=== PATIENT | male | born 1945 | race Caucasian/White ===

== ENCOUNTER 2017-03-09 15:42 | Emergency (ER) | payer OTHER ==
[~2017-03-09 15:42] MED LIST: ASPI81 PO; EZET10 PO; FURO20 PO; GLUC1000 PO; IBUP400T20 PO; LISI-360 PO; METH2.5 PO; METH4PAK PO; METO25 PO; NITR.4 SL; POTA-243 PO; ROSU40 PO
[2017-03-09 15:47] VITALS: BP 145/79; PULSE 121; RESP 18; TEMP 97.8; O2SAT 92
--- NOTE | 2017-03-09 16:17 | PD ---
HPI Chief Complaint: Respiratory Symptoms Time Seen by Provider: 16:07 Travel History International Travel<30 days: No Contact w/Intl Traveler<30days: No Traveled to known affect area: No History of Present Illness HPI 71-year-old male with PMH of DM, CAD status post CABG 4 presents to ED for evaluation of 4 day history of nonproductive cough. The patient endorses chills, has not measured a fever at home. He endorses sinus congestion and clear rhinorrhea. He denies dizziness, ear pain, headaches, chest pain, palpitations, shortness of breath, abdominal pain, nausea, vomiting, dysuria. Endorses receiving this years flu vaccine. Patient states that he went to [facility] just before arrival. He tested negative for the flu there. He states that he was sent because of low O2 level. PFSH Past Medical History Hx Anticoagulant Therapy: Yes (ASA 81 mg daily) Arthritis: Yes (RHEUMATOID) Asthma: No Blood Disorders: No Heart Rhythm Problems: No Cancer: Yes (PROSTATE CA) Cardiac Catheterization: Yes Cardiovascular Problems: Yes (CAD; CABG; HTN) High Cholesterol: Yes Chemotherapy: No Chest Pain: Yes Congestive Heart Failure: No COPD: No Cerebrovascular Accident: No Diabetes: Yes Patient Takes Glucophage: Yes Diminished Hearing: No Endocrine: No Genitourinary: No Hepatitis: No Hiatal Hernia: No Hypertension: Yes Immune Disorder: No Inguinal Hernia: Yes Implanted Vascular Access Dvce: Yes Musculoskeletal: No Neurologic: No Psychiatric: No Reproductive: No Respiratory: No Myocardial Infarction: Yes (mi x2.) Radiation Therapy: Yes (HX OF) Sickle Cell Disease: No Sleep Apnea: No Thyroid Disease: No Past Surgical History Abdominal Surgery: No AICD: No Arteriovenous Shunt: No Body Medical Devices: 2 RODS IN BACK, PINS LEFT FOOT, Cardiac Surgery: Yes (CABG X4, STENTS X2) Cholecystectomy: Yes Ear Surgery: No Endocrine Surgery: No Eye Surgery: No Genitourinary Surgery: No Gynecologic Surgery: No Insulin Pump: No Joint Replacement: Yes (RIGHT TOT. HIP) Oral Surgery: No Pacemaker: No Thoracic Surgery: No Other Surgery: Yes (LEFT ANKLE, RIGHT HIP, RIGHT ELBOW ,CABG X 4) Social History Alcohol Use: No Tobacco Use: No (QUIT 1994) Substance Use: No Allergies-Medications (Allergen,Severity, Reaction): Coded Allergies: penicillin G (Unverified Allergy, Severe, Rash, 03/09/17) atorvastatin (Unverified Allergy, Intermediate, BEHAVIOR CHANGES, 03/09/17 ) Reported Meds & Prescriptions Reported Meds & Active Scripts Active Levaquin (Levofloxacin) 750 Mg Tablet 750 Mg PO DAILY 7 Days Reported Glipizide 10 Mg Tab 10 Mg PO DAILYAC Take 30 minutes before a meal Rosuvastatin (Rosuvastatin Calcium) 20 Mg Tab 20 Mg PO DAILY Furosemide 40 Mg Tab 40 Mg PO DAILYAC Metoprolol Tartrate 50 Mg Tab 25 Mg PO BID Klor-Con 10 (Potassium Chloride) 10 Meq Tab 20 Meq PO DAILY Zetia (Ezetimibe) 10 Mg Tab 10 Mg PO DAILY Metformin (Metformin HCl) 1,000 Mg Tab 1,000 Mg PO BID Methotrexate 2.5 Mg Tab 12.5 Mg PO WEEKLY Januvia (Sitagliptin Phosphate) 50 Mg Tab 50 Mg PO DAILY Enbrel Sureclick PF Inj (Etanercept) 50 Mg/Ml Syr 1 Kit IM WEEKLY Review of Systems Except as stated in HPI: all other systems reviewed are Neg Physical Exam Narrative GENERAL: Well-nourished, well-developed white male in no acute distress. SKIN: Warm and dry. HEAD: Normocephalic. Atraumatic. EYES: No scleral icterus. No injection or drainage. PERRLA. EOMI. ENT: Pearly avila tympanic membranes bilaterally. Nasal mucosa is moist. Oropharynx without erythema, edema or exudate. NECK: Supple, trachea midline. No JVD or lymphadenopathy. CARDIOVASCULAR: Regular rate and rhythm without murmurs, gallops, or rubs. RESPIRATORY: Breath sounds coarse and equal bilaterally. No wheezing. No accessory muscle use. GASTROINTESTINAL: Abdomen soft, non-tender, nondistended. + Bowel sounds MUSCULOSKELETAL: No cyanosis, or edema. Noted to ambulate with a normal gait. BACK: Nontender without obvious deformity. No CVA tenderness. Data Data Last Documented VS Vital Signs Date Time Temp Pulse Resp B/P (MAP) Pulse Ox O2 Delivery O2 Flow Rate FiO2 03/09/17 21:49 104 20 114/79 (91) 96 03/09/17 20:00 Nasal Cannula 2.00 03/09/17 15:47 97.8 Orders Orders Complete Blood Count With Diff (03/09/17 15:51) B-Type Natriuretic Peptide (03/09/17 15:51) Act Partial Throm Time (Ptt) (03/09/17 15:51) Prothrombin Time / Inr (Pt) (03/09/17 15:51) Electrocardiogram (03/09/17 15:51) Chest, Pa & Lat (03/09/17 15:51) Troponin I (03/09/17 16:17) Sepsis Workup Initiated (03/09/17 ) Lactic Acid Sepsis Protocol (03/09/17 16:19) Blood Culture (03/09/17 16:19) Ecg Monitoring (03/09/17 16:19) Iv Access Insert/Monitor (03/09/17 16:19) Oximetry (03/09/17 16:19) Oxygen Administration (03/09/17 16:19) Acetaminophen (Tylenol) (03/09/17 16:30) Basic Metabolic Panel (Bmp) (03/09/17 16:31) Sodium Chlorid 0.9% 500 Ml Inj (Ns 500 M (03/09/17 18:00) Ct Pulmonary Angiogram (03/09/17 18:01) Albuterol-Ipratropium Neb (Duoneb Neb) (03/09/17 18:15) Iohexol 350 Inj (Omnipaque 350 Inj) (03/09/17 18:39) Sodium Chlorid 0.9% 500 Ml Inj (Ns 500 M (03/09/17 19:45) Levofloxacin 750 Mg Premix Inj (Levaquin (03/09/17 19:45) Ed Discharge Order (03/09/17 19:44) Labs Laboratory Tests Test 03/09/17 16:31 03/09/17 16:43 03/09/17 19:52 Blood Urea Nitrogen 18 MG/DL Creatinine 1.14 MG/DL Random Glucose 190 MG/DL Calcium Level 9.0 MG/DL Sodium Level 138 MEQ/L Potassium Level 4.0 MEQ/L Chloride Level 100 MEQ/L Carbon Dioxide Level 31.0 MEQ/L Anion Gap 7 MEQ/L Estimat Glomerular Filtration Rate 63 ML/MIN Troponin I LESS THAN 0.02 NG/ML White Blood Count 6.7 TH/MM3 Red Blood Count 4.59 MIL/MM3 Hemoglobin 13.6 GM/DL Hematocrit 40.4 % Mean Corpuscular Volume 87.8 FL Mean Corpuscular Hemoglobin 29.6 PG Mean Corpuscular Hemoglobin Concent 33.7 % Red Cell Distribution Width 14.2 % Platelet Count 207 TH/MM3 Mean Platelet Volume 7.8 FL Neutrophils (%) (Auto) 78.0 % Lymphocytes (%) (Auto) 8.7 % Monocytes (%) (Auto) 10.2 % Eosinophils (%) (Auto) 2.3 % Basophils (%) (Auto) 0.8 % Neutrophils # (Auto) 5.2 TH/MM3 Lymphocytes # (Auto) 0.6 TH/MM3 Monocytes # (Auto) 0.7 TH/MM3 Eosinophils # (Auto) 0.2 TH/MM3 Basophils # (Auto) 0.1 TH/MM3 CBC Comment DIFF FINAL Differential Comment Prothrombin Time 10.8 SEC Prothromb Time International Ratio 1.1 RATIO Activated Partial Thromboplast Time 24.4 SEC Lactic Acid Level 2.1 mmol/L 1.4 mmol/L B-Type Natriuretic Peptide 20 PG/ML MDM Medical Decision Making Medical Screen Exam Complete: Yes Emergency Medical Condition: Yes Differential Diagnosis Viral syndrome versus bronchitis versus pneumonia versus other Narrative Course 71-year-old male with PMH of DM, CAD status post CABG 4 presents to ED for evaluation of 4 day history of nonproductive cough. The patient endorses chills, has not measured a fever at home. He endorses sinus congestion and clear rhinorrhea. Endorses receiving this years flu vaccine. He tested negative for the flu at [facility]. He states that he was sent because of low O2 level. Vitals reviewed. Patient is tachycardic and O2 sats 92% on room air on presentation. Physical exam reveals an ill-appearing white male in no acute distress. ENT exam is unremarkable. He does have coarse breath sounds bilaterally but no wheezing. Patient was placed on 2 L O2 nasal cannula. Pneumonia workup was initiated. Patient's signed out to Dr. Upton. Please see her note for disposition. Scripts Levofloxacin (Levaquin) 750 Mg Tablet 750 MG PO DAILY for Infection for 7 Days, #7 TAB 0 Refills Prov: Janae Upton MD 03/09/17 Esther Jones Mar 09, 2017 16:17
[2017-03-09 16:25] VITALS: RESP 18; O2SAT 95
[2017-03-09] MEDS ORDERED: ACETAMINOPHEN 500 MG CPLT PO ONE (16:30)
--- NOTE | 2017-03-09 16:38 | PD ---
Physical Exam Narrative I, Dr. Upton, have reviewed the advance practice practitioner's documentation and am in agreement, met with the patient face to face, made the diagnosis, and the medical decision making was done by me. *My assessment and Findings: Patient is a 71 year old male who comes in complaining of cough, congestion, SOB. He says he caught a cold from his . Exam shows some coarse breath sounds, tachycardia. Data Data Last Documented VS Vital Signs Date Time Temp Pulse Resp B/P (MAP) Pulse Ox O2 Delivery O2 Flow Rate FiO2 03/09/17 21:49 104 20 114/79 (91) 96 03/09/17 20:00 Nasal Cannula 2.00 03/09/17 15:47 97.8 Orders Orders Complete Blood Count With Diff (03/09/17 15:51) B-Type Natriuretic Peptide (03/09/17 15:51) Act Partial Throm Time (Ptt) (03/09/17 15:51) Prothrombin Time / Inr (Pt) (03/09/17 15:51) Electrocardiogram (03/09/17 15:51) Chest, Pa & Lat (03/09/17 15:51) Troponin I (03/09/17 16:17) Sepsis Workup Initiated (03/09/17 ) Lactic Acid Sepsis Protocol (03/09/17 16:19) Blood Culture (03/09/17 16:19) Ecg Monitoring (03/09/17 16:19) Iv Access Insert/Monitor (03/09/17 16:19) Oximetry (03/09/17 16:19) Oxygen Administration (03/09/17 16:19) Acetaminophen (Tylenol) (03/09/17 16:30) Basic Metabolic Panel (Bmp) (03/09/17 16:31) Sodium Chlorid 0.9% 500 Ml Inj (Ns 500 M (03/09/17 18:00) Ct Pulmonary Angiogram (03/09/17 18:01) Albuterol-Ipratropium Neb (Duoneb Neb) (03/09/17 18:15) Iohexol 350 Inj (Omnipaque 350 Inj) (03/09/17 18:39) Sodium Chlorid 0.9% 500 Ml Inj (Ns 500 M (03/09/17 19:45) Levofloxacin 750 Mg Premix Inj (Levaquin (03/09/17 19:45) Ed Discharge Order (03/09/17 19:44) Labs Laboratory Tests Test 03/09/17 16:31 03/09/17 16:43 03/09/17 19:52 Blood Urea Nitrogen 18 MG/DL Creatinine 1.14 MG/DL Random Glucose 190 MG/DL Calcium Level 9.0 MG/DL Sodium Level 138 MEQ/L Potassium Level 4.0 MEQ/L Chloride Level 100 MEQ/L Carbon Dioxide Level 31.0 MEQ/L Anion Gap 7 MEQ/L Estimat Glomerular Filtration Rate 63 ML/MIN Troponin I LESS THAN 0.02 NG/ML White Blood Count 6.7 TH/MM3 Red Blood Count 4.59 MIL/MM3 Hemoglobin 13.6 GM/DL Hematocrit 40.4 % Mean Corpuscular Volume 87.8 FL Mean Corpuscular Hemoglobin 29.6 PG Mean Corpuscular Hemoglobin Concent 33.7 % Red Cell Distribution Width 14.2 % Platelet Count 207 TH/MM3 Mean Platelet Volume 7.8 FL Neutrophils (%) (Auto) 78.0 % Lymphocytes (%) (Auto) 8.7 % Monocytes (%) (Auto) 10.2 % Eosinophils (%) (Auto) 2.3 % Basophils (%) (Auto) 0.8 % Neutrophils # (Auto) 5.2 TH/MM3 Lymphocytes # (Auto) 0.6 TH/MM3 Monocytes # (Auto) 0.7 TH/MM3 Eosinophils # (Auto) 0.2 TH/MM3 Basophils # (Auto) 0.1 TH/MM3 CBC Comment DIFF FINAL Differential Comment Prothrombin Time 10.8 SEC Prothromb Time International Ratio 1.1 RATIO Activated Partial Thromboplast Time 24.4 SEC Lactic Acid Level 2.1 mmol/L 1.4 mmol/L B-Type Natriuretic Peptide 20 PG/ML [facility] Supervised Visit with ANG: Yes Narrative Course Labs show no acute abnormalities. Flu swab is negative. CXR shows no acute abnormalities. CTA shows no acute abnormalities, no evidence of PE. Last Impressions CT Angiography 03/09/171800 Signed Impressions: Service Date/Time: Thursday, March 09, 2017 18:19 - CONCLUSION: 1. No pulmonary embolus. 2. Mild bibasilar atelectasis. 3. Tiny right pleural effusion, smaller than on previous studies. 4. Asbestos related pleural disease again noted. 5. Stable appearing mesenteric mass along the greater curvature of the stomach, probably benign. Nigel Soto MD Chest X-Ray 03/09/17 1551 Signed Impressions: Service Date/Time: Thursday, March 09, 2017 16:54 - CONCLUSION: 1. Stable bilateral pleural plaques. Stable postsurgical changes over the heart. 2. Interval posterior fixation of the thoracolumbar spine as above. 3. Hypoinflation with bibasilar atelectatic changes. No large confluent infiltrate. Hoang Kennedy MD Patient states he is feeling well. I spoke with him regarding my concern over his increased heart rate. He says he is comfortable going home and will return if he is not feeling well. Discharged with a prescription for Levaquin. Given first does in the ED as well as IVF. Advised to follow up with his doctor. Advised to return for any worsening symptoms. Diagnosis Primary Impression: Bronchitis Patient Instructions: Acute Bronchitis (ED), General Instructions Additional Instruction: Take all of your antibiotic. Follow up with your doctors. Return at any time for any worsening symptoms. Scripts Levofloxacin (Levaquin) 750 Mg Tablet 750 MG PO DAILY for Infection for 7 Days, #7 TAB 0 Refills Prov: Janae Upton MD 03/09/17 Disposition: DISCHARGE HOME Condition: Stable Janae Upton MD Mar 09, 2017 16:38
--- NOTE | 2017-03-09 17:16 | RADRPT ---
EXAM DATE/TIME: 03/09/2017 16:54 [facility] COMPARISON: CHEST PA & LAT, July 24, 2015, 18:11. INDICATIONS : Short of breath. MEDICAL HISTORY : None. SURGICAL HISTORY : None. ENCOUNTER: Initial ACUITY: 1 day PAIN SCORE: 7/10 LOCATION: Bilateral chest FINDINGS: PA and lateral views of the chest demonstrate lungs to be hypoinflated with bibasilar atelectatic oleksandr nges. Scattered pleural plaques are unchanged. Postsurgical changes with intact median sternotomy wir es and surgical clips characteristic of prior CABG. Interval placement of bilateral transpedicular fi xation of the visualized portions of the midthoracic and upper lumbar spine. Heart size is normal acc ounting for degree of inspiration. CONCLUSION: 1. Stable bilateral pleural plaques. Stable postsurgical changes over the heart. 2. Interval posterior fixation of the thoracolumbar spine as above. 3. Hypoinflation with bibasilar atelectatic changes. No large confluent infiltrate. Hoang Kennedy MD on March 09, 2017 at 17:12 Board Certified Radiologist. This report was verified electronically.
[2017-03-09 17:23] LABS: AUTOMATED NEUTROPHIL # 5.2 TH/MM3 (1.8-7.7); BASOPHIL # 0.1 TH/MM3 (0-0.2); BASOPHIL % 0.8 % (0.0-2.0); EOSINOPHIL # 0.2 TH/MM3 (0-0.4); EOSINOPHIL % 2.3 % (0.0-4.0); HEMATOCRIT 40.4 % (39.0-51.0); HEMOGLOBIN 13.6 GM/DL (13.0-17.0); LYMPH % 8.7 % (9.0-44.0); LYMPHOCYTE # 0.6 TH/MM3 (1.0-4.8); MEAN CELL VOLUME 87.8 FL (80.0-100.0); MEAN CORPUSCULAR HEMOGLOBIN 29.6 PG (27.0-34.0); MEAN CORPUSCULAR HGB CONC 33.7 % (32.0-36.0); MEAN PLATELET VOLUME 7.8 FL (7.0-11.0); MONO % 10.2 % (0.0-8.0); MONOCYTE # 0.7 TH/MM3 (0-0.9); PLATELET COUNT 207 TH/MM3 (150-450); RED BLOOD COUNT 4.59 MIL/MM3 (4.50-5.90); RED CELL DISTRIBUTION WIDTH 14.2 % (11.6-17.2); WHITE BLOOD COUNT 6.7 TH/MM3 (4.0-11.0)
[2017-03-09 17:33] LABS: BLOOD UREA NITROGEN 18 MG/DL (7-18); CHLORIDE 100 MEQ/L (98-107); CREATININE 1.14 MG/DL (0.60-1.30); GLOMERULAR FILTRATION RATE 63 ML/MIN (>89); GLUCOSE,RANDOM 190 MG/DL (74-106); SODIUM (NA) 138 MEQ/L (136-145)
[2017-03-09 17:35] LABS: LACTIC ACID SEPSIS PROTOCOL 2.1 mmol/L (0.4-2.0)
[2017-03-09 17:37] LABS: TROPONIN I LESS THAN 0.02 NG/ML (0.02-0.05)
[2017-03-09 17:37] LABS: INTERNATIONAL NORMALIZED RATIO 1.1 RATIO; PROTHROMBIN TIME - PATIENT 10.8 SEC (9.8-11.6)
[2017-03-09] MEDS ORDERED: SODIUM CHLORID 0.9% 500 ML INJ 500 ML IV ONE ×2 (18:00→19:45)
[2017-03-09 18:01] VITALS: BP 132/80; PULSE 113; RESP 20; O2SAT 97
[2017-03-09] MEDS ORDERED: RESP: ALBUTEROL 2.5 MG/IPRATROPIUM 0.5 MG NEB (SCH) NEB ONE (18:15)
[2017-03-09] MEDS ORDERED: IOHEXOL 350 MG/ML 10 ML VIAL (for RAD DIAG) IVCONTRAST ONE (18:39)
--- NOTE | 2017-03-09 19:00 | RADRPT ---
EXAM DATE/TIME: 03/09/2017 18:19 [facility] COMPARISON: CT ABDOMEN & PELVIS W CONTRAST, August 17, 2015, 12:02. CT THORAX W CONTRAST, July 24, 2015, 19:06. INDICATIONS : Patient complains of cough, short of breath for four days. IV CONTRAST: 52 cc Omnipaque 350 (iohexol) IV RADIATION DOSE: 15.68 CTDIvol (mGy) MEDICAL HISTORY : Cardiovascular disease. Diabetes mellitus type 1. Carcinoma, prostate. SURGICAL HISTORY : Cholecystectomy. CABGT-spine surgery ENCOUNTER: Initial ACUITY: 4 - 6 days PAIN SCALE: 0/10 LOCATION: chest TECHNIQUE: Volumetric scanning of the chest was performed using a pulmonary embolism protocol MIP images were re constructed. Using automated exposure control and adjustment of the mA and/or kV according to patien t size, radiation dose was kept as low as reasonably achievable to obtain optimal diagnostic quality images. DICOM format image data is available electronically for review and comparison. Follow-up recommendations for detected pulmonary nodules are based at a minimum on nodule size and pa tient risk factors according to Fleischner Society Guidelines. FINDINGS: There is no pulmonary embolus. Mild bibasilar atelectasis noted. There is a tiny right pleural effusion, smaller than on previous st udies. Heart size within normal limits. Patient has had previous median sternotomy and coronary artery bypas s graft operation. Scattered calcified pleural plaquing again noted. Tortuous thoracic aorta with patchy atherosclerotic plaque. No aneurysm. Upper abdomen only partly included on the study. The extraluminal mass along the greater curvature of the stomach measuring approximately 2.5 cm in size again noted and not perceptibly changed, probably benign. CONCLUSION: 1. No pulmonary embolus. 2. Mild bibasilar atelectasis. 3. Tiny right pleural effusion, smaller than on previous studies. 4. Asbestos related pleural disease again noted. 5. Stable appearing mesenteric mass along the greater curvature of the stomach, probably benign. Nigel Soto MD on March 09, 2017 at 18:55 Board Certified Radiologist. This report was verified electronically.
[2017-03-09 19:05] VITALS: BP 132/80; PULSE 115; RESP 20; O2SAT 96
[2017-03-09] MEDS ORDERED: LEVA750T9 PO (19:43)
[2017-03-09] MEDS ORDERED: LEVOFLOXACIN 750 MG PREMIX INJ 150 ML IV ONE (19:45)
[2017-03-09 20:00] VITALS: BP 133/77; PULSE 110; RESP 20; O2SAT 96
[2017-03-09 21:49] VITALS: BP 114/79
[2017-03-10] MEDS ORDERED: METH2.5T PO (00:36)
[2017-03-10] MEDS ORDERED: FURO40TA PO (00:36)
[2017-03-10] MEDS ORDERED: EZET10 PO (00:36)
[2017-03-10] MEDS ORDERED: METF1000 PO (00:36)
[2017-03-10] MEDS ORDERED: METO50TA PO (00:36)
[2017-03-10] MEDS ORDERED: ROSU1TAB8 PO (00:36)
[2017-03-10] MEDS ORDERED: GLIP10TA6 PO (00:36)
[2017-03-10] MEDS ORDERED: KLOR10TA PO (00:36)
[2017-03-10] MEDS ORDERED: ENBR50IN4 IM (00:36)
[2017-03-10] MEDS ORDERED: SITA50 PO (00:36)
--- NOTE | 2017-03-10 15:05 | EKG ---
Date Performed: 03/09/2017 Time Performed: 16:14:43 PTAGE: 71 years EKG: SINUS TACHYCARDIA INTRAVENTRICULAR CONDUCTION DELAY INFERIOR MYOCARDIAL INFARCTION ABNORMAL ECG PREVIOUS TRACING : 08/17/2015 11.05 DOCTOR: Patrick Decker Interpretating Date/Time 03/10/2017 15:04:35
== END 2017-03-09 21:56 | disposition home or self-care (01) ==
LOC: NEPC 15:42
DX: J40 Bronchitis, not specified as acute or chronic (principal); R00.0 Tachycardia, unspecified; E78.00 Pure hypercholesterolemia, unspecified; E11.9 Type 2 diabetes mellitus without complications; I10 Essential (primary) hypertension; I25.10 Atherosclerotic heart disease of native coronary artery without angina pectoris; I25.2 Old myocardial infarction; M06.9 Rheumatoid arthritis, unspecified; R06.02 Shortness of breath; Z79.82 Long term (current) use of aspirin; Z79.84 Long term (current) use of oral hypoglycemic drugs; Z87.891 Personal history of nicotine dependence; Z95.1 Presence of aortocoronary bypass graft
CPT/HCPCS: 71020; 71275; 80048; 83605; 83880; 84484; 85025; 85610; 85730; 87040; 93005; 94664; 96361; 96365; 96366; 99285; J1956; J7040; Q9967

== ENCOUNTER 2018-02-21 15:29 | Observation (INO) ==
--- NOTE | 2018-02-21 15:45 | ED ---
HPI General Chief Complaint: Chest Pain Stated Complaint: Stemi Time Seen by Provider: 02/21/18 15:37 Source: patient Mode of arrival: EMS Limitations: no limitations History of Present Illness HPI narrative: Primary CARE Dr. Nigel Dallas, Dr. Van will send radiologist According to patient he has multiple histories of multiple infarcts status post stents, CABG, hypertension and diabetes. Today the patient presented with substernal chest pressure nonradiating onset about 30 minutes prior to arrival while at rest. Once fire arrived they placed a 12-lead on and according to their interpretation it looks like a STEMI however they did not give any kind anatomical information and the patient was transferred/transported to the ER. Upon arriving the patient was pain-free vital signs were stable and he did not have any complaint at that time. Related Data Home Medications Medication Instructions Recorded Confirmed cyanocobalamin (vitamin B-12) 5,000 mcg SUBLINGUAL WEEKLY 02/21/18 02/21/18 [Vitamin B-12] empagliflozin [Jardiance] 10 mg PO DAILY 02/21/18 02/21/18 ezetimibe [Zetia] 10 mg PO DAILY 02/21/18 02/21/18 folic acid 0.4 mg PO DAILY 02/21/18 02/21/18 furosemide 40 mg PO DAILY 02/21/18 02/21/18 glipizide 10 mg PO DAILY 02/21/18 02/21/18 metformin 1,000 mg PO BID 02/21/18 02/21/18 methotrexate sodium 12.5 mg PO QWEEK 02/21/18 02/21/18 metoprolol tartrate 25 mg PO BID 02/21/18 02/21/18 potassium chloride [Klor-Con 10] 20 meq PO DAILY 02/21/18 02/21/18 rosuvastatin [Crestor] 20 mg PO DAILY 02/21/18 02/21/18 Allergies Allergy/AdvReac Type Severity Reaction Status Date / Time penicillin G Allergy Severe Rash Verified 02/21/18 15:41 atorvastatin Allergy Intermediate BEHAVIOR Verified 02/21/18 15:41 CHANGES Review of Systems ROS: all other systems reviewed are negative PMFSH History History Provided By: Patient Medical History Medical History Diabetes mellitus (Acute) HTN (hypertension) (Acute) Myocardial infarct (Acute) Surgical History Surgical History History of heart artery stent (Acute) History of heart bypass surgery (Acute) Social History Social History Substance History: No History of Abuse Smoking Status: Former smoker How Often Do You Have a Drink Containing Alcohol: Never Recent Travel in [facility] within the Last 8 Weeks: No Recent Out of Country Travel within the Last 8 Weeks: No Exam Narrative Exam Narrative: GENERAL: Obese male in no acute distress SKIN: Warm and dry. HEAD: Atraumatic. Normocephalic. EYES: Pupils equal and round. No scleral icterus. No injection or drainage. ENT: No nasal bleeding or discharge. Mucous membranes pink and moist. NECK: Trachea midline. No JVD. CARDIOVASCULAR: Regular rate and rhythm. no rubs or gallops RESPIRATORY: No accessory muscle use. Clear to auscultation. Breath sounds equal bilaterally. GASTROINTESTINAL: Abdomen soft, non-tender, nondistended. No rebound or guarding... Patient has caput medusa-like findings on abdomen, reducible umbilical hernia, MUSCULOSKELETAL: Extremities without clubbing, cyanosis, or edema. No obvious deformities. NEUROLOGICAL: Awake and alert. No obvious cranial nerve deficits. Motor grossly within normal limits. Five out of 5 muscle strength in the arms and legs. Normal speech. PSYCHIATRIC: Appropriate mood and affect; insight and judgment normal. Course Initial Documented Vital Signs Pulse Rate 85 02/21/18 15:31 Respiratory Rate 22 02/21/18 15:31 Blood Pressure 146/74 H 02/21/18 15:31 Pulse Oximetry 98 02/21/18 15:31 Last Documented Vital Signs Temperature 98.3 F 02/21/18 15:37 Pulse Rate 98 H 02/21/18 17:37 Respiratory Rate 18 02/21/18 17:37 Blood Pressure 134/86 02/21/18 17:37 Pulse Oximetry 96 02/21/18 17:37 Medical Decision Making MDM Narrative Medical decision making narrative: To repeat EKGs did not show any evidence of acute ST elevation, and only showed a right bundle branch block pattern, so the STEMI alert was aborted CBC shows no leukocytosis no anemia no abnormal platelet count and no left shift Coagulation profile is within normal limits Although the patient has no previous history of any allergies to IV contrast, the patient was noted to develop hives on his return from the CT suite where he received IV contrast for CT chest rule out PE study. Patient did not have any angioedema signs, no evidence of any stridor, no evidence of any wheezing, however he did have those early small hives noted. Patient was immediately provided with 25 mg IV Benadryl, 20 mg IV Pepcid, and 125 mg Solu-Medrol IV x1 Currently awaiting CT chest results Medical Screen Exam Complete: Yes Emergency Medical Condition: Yes Medical Records Medical records reviewed: Yes I reviewed the patient's medical records. Lab Data Result diagrams: 02/21/18 15:46 02/21/18 15:46 Lab Results 02/21/18 02/21/18 02/21/18 Range/Units 15:46 15:46 15:46 WBC 4.8 (4.0-11.0) th/mm3 RBC 4.39 L (4.50-5.90) mil/mm3 Hgb 13.7 (13.0-17.0) gm/dL Hct 40.4 (39.0-51.0) % MCV 92.0 (80.0-100.0) fL MCH 31.1 (27.0-34.0) pg MCHC 33.8 (32.0-36.0) % RDW 14.5 (11.6-17.2) % Plt Count 194 (150-450) th/mm3 MPV 7.2 (7.0-11.0) fL Neut % (Auto) 60.7 (16.0-70.0) % Lymph % (Auto) 20.9 (9.0-44.0) % Fajardo % (Auto) 12.3 H (0.0-8.0) % Eos % (Auto) 5.3 H (0.0-4.0) % Baso % (Auto) 0.8 (0.0-2.0) % Neut # (Auto) 2.9 (1.8-7.7) th/mm3 Lymph # (Auto) 1.0 (1.0-4.8) th/mm3 Fajardo # (Auto) 0.6 (0.0-0.9) th/mm3 Eos # (Auto) 0.3 (0.0-0.4) th/mm3 Baso # (Auto) 0.0 (0.0-0.2) th/mm3 WBC Differential . Differential Comment Auto diff final PT 10.5 (9.8-11.6) sec INR 1.0 Ratio APTT 26.4 (23.4-31.7) sec Sodium 140 (136-145) meq/L Potassium 3.8 (3.5-5.1) meq/L Chloride 102 (98-107) meq/L Carbon Dioxide 30.6 (21.0-32.0) meq/L Anion Gap 7 (5-15) meq/L BUN 19 H (7-18) mg/dL Creatinine 1.12 (0.60-1.30) mg/dL Estimated GFR 64 L (>89) mL/min Random Glucose 195 H (74-106) mg/dL Calcium 8.1 L (8.5-10.1) mg/dL Total Bilirubin 0.2 (0.2-1.0) mg/dL AST 23 (15-37) U/L ALT 30 (12-78) U/L Alkaline Phosphatase 57 (45-117) U/L Total Creatine Kinase 118 (39-308) U/L CK-MB (CK-2) Less than 1.0 (0.5-3.6) ng/mL Troponin I Less than 0.02 L (0.02-0.05) ng/mL B-Natriuretic Peptide (0-100) pg/mL Total Protein 7.8 (6.4-8.2) g/dL Albumin 3.3 L (3.4-5.0) g/dL Lipase 172 (73-393) U/L 02/21/18 Range/Units 15:46 WBC (4.0-11.0) th/mm3 RBC (4.50-5.90) mil/mm3 Hgb (13.0-17.0) gm/dL Hct (39.0-51.0) % MCV (80.0-100.0) fL MCH (27.0-34.0) pg MCHC (32.0-36.0) % RDW (11.6-17.2) % Plt Count (150-450) th/mm3 MPV (7.0-11.0) fL Neut % (Auto) (16.0-70.0) % Lymph % (Auto) (9.0-44.0) % Fajardo % (Auto) (0.0-8.0) % Eos % (Auto) (0.0-4.0) % Baso % (Auto) (0.0-2.0) % Neut # (Auto) (1.8-7.7) th/mm3 Lymph # (Auto) (1.0-4.8) th/mm3 Fajardo # (Auto) (0.0-0.9) th/mm3 Eos # (Auto) (0.0-0.4) th/mm3 Baso # (Auto) (0.0-0.2) th/mm3 WBC Differential Differential Comment PT (9.8-11.6) sec INR Ratio APTT (23.4-31.7) sec Sodium (136-145) meq/L Potassium (3.5-5.1) meq/L Chloride (98-107) meq/L Carbon Dioxide (21.0-32.0) meq/L Anion Gap (5-15) meq/L BUN (7-18) mg/dL Creatinine (0.60-1.30) mg/dL Estimated GFR (>89) mL/min Random Glucose (74-106) mg/dL Calcium (8.5-10.1) mg/dL Total Bilirubin (0.2-1.0) mg/dL AST (15-37) U/L ALT (12-78) U/L Alkaline Phosphatase (45-117) U/L Total Creatine Kinase (39-308) U/L CK-MB (CK-2) (0.5-3.6) ng/mL Troponin I (0.02-0.05) ng/mL B-Natriuretic Peptide 14 (0-100) pg/mL Total Protein (6.4-8.2) g/dL Albumin (3.4-5.0) g/dL Lipase (73-393) U/L Imaging Data Radiologist's impression: Chest X-Ray 02/21/18 15:38 CONCLUSION: 1. Apparent blunting of both costophrenic angles which could indicate small effusions. 2. The heart size remains mildly prominent with no perihilar edema. ECG Data EKG Prior to Arrival: Yes Attestation: I personally reviewed and interpreted this ECG as follows: Prior ECG tracings: available for review Interpretation: EMS prior EKG tracing shows right bundle branch block pattern, heart rate 83 bpm, prolonged QRS interval. EKG performed at bedside showed normal sinus rhythm, 82 bpm occasional PAC, and findings consistent with right bundle branch block, no evidence of any acute ST elevation MO pattern, no evidence of any positive sgarbossa's criteria. Discharge Plan Discharge Disposition Patient Disposition: ED Admit(ED Internal Use Only) Discharge Condition Condition: Stable Discharge Details Diagnosis: Chest pain, rule out acute myocardial infarction Physicians Team ED Provider: Clayton Caputo Primary Care Provider: Aleksander Dallas Rxs /Orders / Referrals /Forms Prescriptions: No Action furosemide 40 mg Tablet 40 mg PO DAILY RF: 0 glipizide 10 mg Tablet 10 mg PO DAILY RF: 0 potassium chloride [Klor-Con 10] 10 mEq Tablet Extended Release 20 meq PO DAILY RF: 0 folic acid 400 mcg Tablet 0.4 mg PO DAILY RF: 0 methotrexate sodium 2.5 mg Tablet 12.5 mg PO QWEEK RF: 0 metformin 1,000 mg Tablet 1,000 mg PO BID RF: 0 ezetimibe [Zetia] 10 mg Tablet 10 mg PO DAILY RF: 0 rosuvastatin [Crestor] 20 mg Tablet 20 mg PO DAILY RF: 0 metoprolol tartrate 25 mg Tablet 25 mg PO BID RF: 0 cyanocobalamin (vitamin B-12) [Vitamin B-12] 5,000 mcg Tablet, Sublingual 5,000 mcg SUBLINGUAL WEEKLY RF: 0 empagliflozin [Jardiance] 10 mg Tablet 10 mg PO DAILY RF: 0 Discharge Instructions Patient Printed Instructions: Chest Pain (ED) Status ED Status: With Doctor
--- NOTE | 2018-02-21 15:55 | XR ---
EXAM DATE: 02/21/2018 3:51 PM EST AGE/SEX: 72 years / Male INDICATIONS: Short of breath, stemi alert. CLINICAL DATA: This is the patient's initial encounter. Patient reports that signs and symptoms have been present for 1 day and indicates a pain score of 0/10. MEDICAL/SURGICAL HISTORY: Non-responsive. CABG. Fusion, thoracic. COMPARISON: [facility] – [place], CHEST PA & LAT, 03/09/2017. . FINDINGS: A single AP portable semierect view of the chest was obtained and again demonstrate the patient is st atus post median sternotomy. The heart size remains mildly prominent. There is blunting of both costo phrenic angles noted. No confluent infiltrates or perihilar edema are identified. There are postopera tive changes again noted in the spine with spinal fixation rods in place. CONCLUSION: 1. Apparent blunting of both costophrenic angles which could indicate small effusions. 2. The heart size remains mildly prominent with no perihilar edema. Electronically signed by: Grady Spain MD 02/21/2018 3:54 PM EST
[2018-02-21 16:03] LABS: Baso % (Auto) 0.8 % (0.0-2.0); Eos # (Auto) 0.3 th/mm3 (0.0-0.4); Eos % (Auto) 5.3 % (0.0-4.0); Hematocrit 40.4 % (39.0-51.0); Hemoglobin 13.7 gm/dL (13.0-17.0); Lymph % (Auto) 20.9 % (9.0-44.0); Mean Corpuscular HGB Conc 33.8 % (32.0-36.0); Mean Corpuscular Hemoglobin 31.1 pg (27.0-34.0); Mean Platelet Volume 7.2 fL (7.0-11.0); Mono # (Auto) 0.6 th/mm3 (0.0-0.9); Mono % (Auto) 12.3 % (0.0-8.0); Neut # (Auto) 2.9 th/mm3 (1.8-7.7); Neut % (Auto) 60.7 % (16.0-70.0); Platelet Count 194 th/mm3 (150-450); Red Blood Count 4.39 mil/mm3 (4.50-5.90); Red Cell Distribution Width 14.5 % (11.6-17.2); White Blood Count 4.8 th/mm3 (4.0-11.0)
[2018-02-21 16:13] LABS: Activated Partial Thrombo Time 26.4 sec (23.4-31.7); Prothrombin Time 10.5 sec (9.8-11.6)
[2018-02-21 16:32] LABS: Alkaline Phosphatase 57 U/L (45-117); Creatine Kinase 118 U/L (39-308); Total Protein 7.8 g/dL (6.4-8.2)
[2018-02-21 16:47] LABS: Alanine Aminotransferase 30 U/L (12-78); Albumin 3.3 g/dL (3.4-5.0); Anion Gap 7 meq/L (5-15); Aspartate Aminotransferase 23 U/L (15-37); Blood Urea Nitrogen 19 mg/dL (7-18); Calcium 8.1 mg/dL (8.5-10.1); Carbon Dioxide 30.6 meq/L (21.0-32.0); Chloride 102 meq/L (98-107); Glomerular Filtration Rate 64 mL/min (>89); Glucose,Random 195 mg/dL (74-106); Lipase 172 U/L (73-393); Potassium 3.8 meq/L (3.5-5.1); Sodium 140 meq/L (136-145)
[2018-02-21] MEDS ORDERED: Famotidine PF Inj 20 MG/2 ML Vial IV.PUSH ONE (18:56)
[2018-02-21] MEDS ORDERED: MethylPREDNISolone Sod Succinate Inj 125 MG/2 ML Vial IV.PUSH ONE (18:56)
--- NOTE | 2018-02-21 19:04 | CT ---
EXAM DATE: 02/21/2018 6:57 PM EST AGE/SEX: 72 years / Male INDICATIONS: Mid chest pain CLINICAL DATA: This is the patient's initial encounter. Patient reports that signs and symptoms have been present for 1 day and indicates a pain score of 7/10. MEDICAL/SURGICAL HISTORY: Diabetes. Hypertension. Cardiovascular disease. CABG. RADIATION DOSE: 10.63 CTDI (mGy) COMPARISON: [facility] – [place], [place] ABDOMEN & PELVIS W CONTRAST, 08/17/2015. . TECHNIQUE: Volumetric scanning was performed using a multi-row detector CT scanner during bolus infu thea of 55 ml Omnipaque 350 (iohexol) nonionic water-soluble contrast as a single exam dose. The natalie a was post processed with a variety of visualization algorithms including full volume maximum intensi ty projection and sliding thin slab reformation. Using automated exposure control and adjustment of the mA and/or kV according to patient size, radiation dose was kept as low as reasonably achievable t o obtain optimal diagnostic quality images. DICOM format image data is available electronically for review and comparison. FINDINGS: No filling defects seen to suggest pulmonary embolic disease. There is chronic pleural disease with p leural calcifications likely from asbestos exposure. Rounded atelectasis present at both lung bases w ith chronic small effusions. Mild asbestosis. Dense coronary calcifications. No acute findings in the upper abdomen. CONCLUSION: 1. Negative for pulmonary embolus. 2. Asbestos pleural disease and mild asbestosis. 3. Stable 2.7 cm soft tissue nodule along the greater curvature of the stomach compared with 2016. Electronically signed by: Praful Arthur MD 02/21/2018 7:03 PM EST
[2018-02-21] MEDS ORDERED: Morphine Inj 4 MG/ML Vial IV.PUSH PRN (19:07)
[2018-02-21] MEDS: Heparin - SQ 10,000 UNITS/ML Vial SQ SCH (19:45)
[2018-02-21 20:28] LABS: Amphetamine Screen,Urine Neg (Neg); Barbiturate Screen,Urine Neg (Neg); Cannabinoid Screen,Urine Neg (Neg); Cocaine Screen,Urine Neg (Neg)
[2018-02-21 20:35] LABS: Bilirubin,Urine Negative (Negative); Clarity,Urine Clear (Clear); Color,Urine Yellow (Yellw/Straw); Glucose,Urine (UA) 500 or Greater mg/dL (Negative); Leukocyte Esterase,Urine Negative (Negative); Mucus,Urine Few /lpf (Occasional); Nitrite,Urine Negative (Negative); Specific Gravity,Urine 1.027 (1.002-1.035); Squamous Epithelial Cell,Urine <1 /hpf (0-5)
[2018-02-21 20:42] LABS: Opiate Screen,Urine Neg (Neg)
[2018-02-21 20:49] VITALS: TEMP 97.6
[2018-02-21] MEDS ORDERED: Metoprolol Tartrate 25 MG Tablet PO ONE (22:00)
[2018-02-21] MEDS: Sod Chloride 0.9% Inj 1,000 ML IV.CONT SCH (22:31)
[2018-02-21 23:33] LABS: Creatine Kinase 100 U/L (39-308)
[2018-02-22] MEDS: Sod Chloride 0.9% Inj 1,000 ML IV.CONT SCH ×2 (04:45→06:56)
[2018-02-22] MEDS: Heparin - SQ 10,000 UNITS/ML Vial SQ SCH (06:54)
[2018-02-22 07:23] VITALS: RESP 20
[2018-02-22] MEDS ORDERED: Metoprolol Tartrate 25 MG Tablet PO SCH ×2 (09:00→10:00)
--- NOTE | 2018-02-22 09:01 | P.HPCA ---
History of Present Illness Primary Care Physician: Aleksander Dallas MD Chief Complaint: Chest pain History of Present Illness: This is a 72-year-old male with history of CAD with a CABG in 1994, stent 2012, diabetes, hyperlipidemia, hypertension that presents to ED to be evaluated for chest discomfort. Describes a discomfort that he did that he states was an electrical sensation in the center of his chest that began while he was sitting at home last evening. Lasted 30 seconds but recurred 3 or 4 times. He chronically is somewhat short of breath but states it was not worsened with his discomfort. Denies nausea or diaphoresis. States that this discomfort is not the same type of discomfort he has had when meeting bypass or stent. His discomforts and no situations were in his left arm. He follows Dr. Rehan John of cardiology and states he last saw him approximately in October. Cannot recall recent stress test in his office. Currently denies any discomforts. A CTA obtained in the emergency department was read by radiologist as no PE. 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 He states he had seen Dr. Godwin a pulmonology little while ago after seeing something on a chest x-ray. States that they were told things were looking okay but they would want to see him again in March. States he is never been told of a diagnosis of asbestosis and cannot recall ever being told he has COPD. He does have sleep apnea but cannot wear the mask secondary to claustrophobia. History of CAD with a bypass in 1994 as well as a stent in 2012. Diabetes, hyperlipidemia, hypertension, sleep apnea. There is family history of CAD. He quit smoking cigarettes 25 years ago. - Diagnosis (1) Chest pain (2) Asbestosis (3) History of coronary artery disease (4) History of heart artery stent (5) History of coronary artery bypass graft (6) Hypertension (7) Hyperlipidemia (8) Diabetes Review of Systems General: Patient denies fevers, chills, and recent travel. HEENT: Patient denies headache, sore throat, difficulty swallowing. Cardiovascular: Has the chest discomfort as mentioned above. Denies sensation of heart beating rapidly or irregularly. No syncope. Denies diaphoresis. Respiratory: He has been short of breath. Denies inspirational chest discomfort. Denies coughing wheezing or hemoptysis. GI: Patient denies nausea, vomiting, diarrhea, abdominal pain, bloody stools. Musculoskeletal: Patient denies joint pain or edema. Denies calf pain or edema. Neurovascular: Patient denies numbness, tingling, weakness in extremities. Denies headache. Endocrine: Denies polyuria and polydipsia. Hematologic: Denies easy bruising. Skin: Denies rash or itching. PMF - History History Provided By: Patient - Medical History Medical History: Medical History (Last Reviewed 02/21/18 @ 15:41 by Clayton Caputo) Diabetes mellitus HTN (hypertension) Myocardial infarct - Surgical History Surgical History: Surgical History (Last Reviewed 02/21/18 @ 15:41 by Clayton Caputo) History of heart artery stent History of heart bypass surgery - Tobacco History Second Hand Smoke Exposure: No Tobacco Use In Past 30 Days: No Smoking Status: Former smoker Tobacco Type: Cigarettes - Alcohol History How Often Do You Have a Drink Containing Alcohol: Never - Substance Use History Substance History: No History of Abuse - Travel History Recent Travel in the [place] Within the Last 8 Weeks: No Recent Travel Out of the Country Within the Last 8 Weeks: No - Immunization History Tetanus Immunization: Unsure Medications and Allergies Active Medications: Active Medications Albuterol (Duoneb Neb (Prn)) 1 ampul NEB Q4HR NEB PRN PRN Reason: SHORTNESS OF BREATH/WHEEZING Furosemide (Lasix) 40 mg PO DAILY [facility] Heparin Sodium (Porcine) (Heparin Inj) 5,000 units SQ Q12H [facility] Last Admin: 02/22/18 06:54 Dose: 5,000 units Sodium Chloride (Ns Inj) 1,000 mls @ 100 mls/hr IV.CONT .Q10H [facility] Last Admin: 02/22/18 06:56 Dose: 100 mls/hr Insulin Human Regular (Novolin R Correctional Sugar Inj) 0 units SQ ACHS [facility]; Protocol Metoprolol Tartrate (Lopressor) 25 mg PO BID [facility] Last Admin: 02/22/18 08:49 Dose: 25 mg Metoprolol Tartrate (Lopressor) 25 mg PO BID [facility] Morphine Sulfate (Morphine Inj) 2 mg IV.PUSH Q4H PRN PRN Reason: PAIN SCALE 8 TO 10 Nitroglycerin (Nitrostat Sl) 0.4 mg SL Q5M PRN PRN Reason: CHEST PAIN Non-Formulary Medication (Folic Acid [Folic Acid]) 0.4 mg PO DAILY [facility] Non-Formulary Medication (Rosuvastatin) 20 mg PO DAILY [facility] Ondansetron HCl (Zofran Inj) 4 mg IV.PUSH Q6H PRN PRN Reason: NAUSEA Potassium Chloride (Klor-Con 10) 20 meq PO DAILY [facility] Sodium Chloride (Ns Flush) 2 ml IV.FLUSH UNSCH PRN PRN Reason: FLUSH AFTER USING IV ACCESS Sodium Chloride (Ns Flush) 2 ml IV.FLUSH BID [facility] Last Admin: 02/22/18 08:49 Dose: Not Given Sodium Chloride (Ns Flush) 2 ml IV.FLUSH PRN PRN PRN Reason: FLUSH AFTER USING IV ACCESS Allergies Allergy/AdvReac Type Severity Reaction Status Date / Time penicillin G Allergy Severe Rash Verified 02/21/18 15:41 atorvastatin Allergy Intermediate BEHAVIOR Verified 02/21/18 15:41 CHANGES Home Medications Medication Instructions Recorded Confirmed Type cyanocobalamin (vitamin B-12) 5,000 mcg SUBLINGUAL WEEKLY 02/21/18 02/21/18 History [Vitamin B-12] empagliflozin [Jardiance] 10 mg PO DAILY 02/21/18 02/21/18 History ezetimibe [Zetia] 10 mg PO DAILY 02/21/18 02/21/18 History folic acid 0.4 mg PO DAILY 02/21/18 02/21/18 History furosemide 40 mg PO DAILY 02/21/18 02/21/18 History glipizide 10 mg PO DAILY 02/21/18 02/21/18 History metformin 1,000 mg PO BID 02/21/18 02/21/18 History methotrexate sodium 12.5 mg PO QWEEK 02/21/18 02/21/18 History metoprolol tartrate 25 mg PO BID 02/21/18 02/21/18 History potassium chloride [Klor-Con 10] 20 meq PO DAILY 02/21/18 02/21/18 History rosuvastatin [Crestor] 20 mg PO DAILY 02/21/18 02/21/18 History Exam Vital signs: Vital Signs 02/21/18 15:31 02/21/18 15:37 02/21/18 15:40 Temperature 98.3 F Pulse Rate 85 Respiratory Rate 22 Blood Pressure 146/74 H Pulse Oximetry 98 96 02/21/18 15:41 02/21/18 17:37 02/21/18 19:15 Temperature Pulse Rate 84 98 H 80 Respiratory Rate 18 20 Blood Pressure 134/86 148/93 H Pulse Oximetry 96 95 02/21/18 19:16 02/21/18 20:00 02/21/18 23:00 Temperature 97.6 F Pulse Rate 104 H Respiratory Rate 20 Blood Pressure 127/81 Pulse Oximetry 96 93 L 98 02/21/18 23:37 02/22/18 04:00 02/22/18 07:21 Temperature 97.6 F 97.6 F 97.6 F Pulse Rate 102 H 98 H 99 H Respiratory Rate 20 18 20 Blood Pressure 119/76 131/76 124/78 Pulse Oximetry 91 L 91 L 92 L 02/22/18 07:47 Temperature Pulse Rate Respiratory Rate Blood Pressure Pulse Oximetry 93 L Intake & Output 02/21/18 02/22/18 02/22/18 18:59 06:59 18:59 Intake Total 1240 / 1240 Balance 1240 / 1240 Weight 102.965 kg 102.965 kg Intake: IV 1000 / 1000 NS Inj 1,000 ML @ 100 mls/hr IV 1000 / 1000 .CONT .Q10H [facility] Rx#:[id number] Oral 240 / 240 Other: # Voids 3 Weight On Admission 102.965 kg Narrative: GENERAL: This is a well-nourished, well-developed patient, in no apparent distress. Patient speaks in clear complete sentences. Patient is pleasant. HEENT: Head is atraumatic and normocephalic. Neck is supple without lymphadenopathy and trachea is midline. No JVD or carotid bruits. CARDIOVASCULAR: Regular rate and rhythm without murmurs, gallops, or rubs. RESPIRATORY: Mild crackles at the bases bilaterally. Breath sounds equal bilaterally. No wheezes, rales, or rhonchi. Chest wall is nontender. No use of accessory muscles. GASTROINTESTINAL: Abdomen is nontender, nondistended. Abdomen soft. No obvious pulsatile mass or bruit. No CVA tenderness. Strong femoral pulses bilaterally. Normal bowel sounds in all quadrants. MUSCULOSKELETAL: Patient is moving upper and lower extremities freely. No calf tenderness or edema, no Homans sign. Strong pulses in upper and lower extremities. NEUROLOGICAL: Patient is alert and oriented. Cranial nerves 2-12 are grossly intact. No focal deficits and speech is clear. SKIN: No rash and turgor is normal. Results 02/21/18 15:46 02/21/18 15:46 Cardiac Enzymes 02/21/18 02/21/18 02/21/18 Range/Units 15:46 15:46 19:45 AST 23 (15-37) U/L CK-MB (CK-2) Less than 1.0 (0.5-3.6) ng/mL Troponin I Less than 0.02 L Less than 0.02 L (0.02-0.05) ng/mL B-Natriuretic Peptide 14 (0-100) pg/mL 02/21/18 Range/Units 22:48 AST (15-37) U/L CK-MB (CK-2) (0.5-3.6) ng/mL Troponin I Less than 0.02 L (0.02-0.05) ng/mL B-Natriuretic Peptide (0-100) pg/mL Coagulation 02/21/18 02/21/18 Range/Units 15:46 15:46 PT 10.5 (9.8-11.6) sec APTT 26.4 (23.4-31.7) sec B-Natriuretic Peptide 14 (0-100) pg/mL CBC 02/21/18 Range/Units 15:46 WBC 4.8 (4.0-11.0) th/mm3 RBC 4.39 L (4.50-5.90) mil/mm3 Hgb 13.7 (13.0-17.0) gm/dL Hct 40.4 (39.0-51.0) % Plt Count 194 (150-450) th/mm3 Neut # (Auto) 2.9 (1.8-7.7) th/mm3 Lymph # (Auto) 1.0 (1.0-4.8) th/mm3 [place] # (Auto) 0.6 (0.0-0.9) th/mm3 Eos # (Auto) 0.3 (0.0-0.4) th/mm3 Baso # (Auto) 0.0 (0.0-0.2) th/mm3 Comprehensive Metabolic Panel 02/21/18 Range/Units 15:46 Sodium 140 (136-145) meq/L Potassium 3.8 (3.5-5.1) meq/L Chloride 102 (98-107) meq/L Carbon Dioxide 30.6 (21.0-32.0) meq/L BUN 19 H (7-18) mg/dL Creatinine 1.12 (0.60-1.30) mg/dL Calcium 8.1 L (8.5-10.1) mg/dL AST 23 (15-37) U/L ALT 30 (12-78) U/L Alkaline Phosphatase 57 (45-117) U/L Total Protein 7.8 (6.4-8.2) g/dL Albumin 3.3 L (3.4-5.0) g/dL Intake and Output 02/21/18 02/22/18 02/22/18 22:59 06:59 14:59 Intake Total 1240 / 1240 Balance 1240 / 1240 Intake: IV 1000 / 1000 NS Inj 1,000 ML @ 100 mls/hr IV 1000 / 1000 .CONT .Q10H [facility] Rx#:[id number] Oral 240 / 240 Other: # Voids 3 Weight 102.965 kg Weight On Admission 102.965 kg - Imaging and Cardiology Imaging: Impressions Chest CTA 02/21/18 15:38 CONCLUSION: 1. Negative for pulmonary embolus. 2. Asbestos pleural disease and mild asbestosis. 3. Stable 2.7 cm soft tissue nodule along the greater curvature of the stomach compared with 2016. Chest X-Ray 02/21/18 15:38 CONCLUSION: 1. Apparent blunting of both costophrenic angles which could indicate small effusions. 2. The heart size remains mildly prominent with no perihilar edema. EKG interpretations - EKG EKG shows: sinus rhythm (EKGs are sinus rhythm with right bundle branch block.) Caprini VTE Risk Assessment Caprini VTE Risk Assessment: Moderate/High Risk (score >= 2) Caprini Risk Assessment Model: Point Value = 1 Point Value = 2 Point Value = 3 Point Value = 5 Age 41-60 Minor surgery BMI > 25 kg/m2 Swollen legs Varicose veins or History of unexplained or recurrent spontaneous Oral contraceptives or hormone replacement Sepsis (< 1 month) Serious lung disease, including pneumonia (< 1 month) Abnormal pulmonary function Acute myocardial infarction Congestive heart failure (< 1 month) History of inflammatory bowel disease Medical patient at bed rest Age 61-74 Arthroscopic surgery Major open surgery (> 45 min) Laparoscopic surgery (> 45 min) Malignancy Confined to bed (> 72 hours) Immobilizing plaster cast Central venous access Age >= 75 History of VTE Family history of VTE Factor V Leiden Prothrombin 87017H Lupus anticoagulant Anticardiolipin antibodies Elevated serum homocysteine Heparin-induced thrombocytopenia Other congenital or acquired thrombophilia Stroke (< 1 month) Elective arthroplasty Hip, pelvis, or leg fracture Acute spinal cord injury (< 1 month) Prophylaxis Regimen: Total Risk Factor Score Risk Level Prophylaxis Regimen 0-1 Low Early ambulation 2 Moderate Order ONE of the following: *Sequential Compression Device (SCD) *Heparin 5000 units SQ BID 3-4 Higher Order ONE of the following medications: *Heparin 5000 units SQ TID *Enoxaparin/Lovenox 40 mg SQ daily (WT < 150 kg, CrCl > 30 mL/min) *Enoxaparin/Lovenox 30 mg SQ daily (WT < 150 kg, CrCl > 10-29 mL/min) *Enoxaparin/Lovenox 30 mg SQ BID (WT < 150 kg, CrCl > 30 mL/min) AND/OR *Sequential Compression Device (SCD) 5 or more Highest Order ONE of the following medications: *Heparin 5000 units SQ TID (Preferred with Epidurals) *Enoxaparin/Lovenox 40 mg SQ daily (WT < 150 kg, CrCl > 30 mL/min) *Enoxaparin/Lovenox 30 mg SQ daily (WT < 150 kg, CrCl > 10-29 mL/min) *Enoxaparin/Lovenox 30 mg SQ BID (WT < 150 kg, CrCl > 30 mL/min) AND *Sequential Compression Device (SCD) Assessment and Plan - Assessment (1) Chest pain Code(s): R07.9 - Chest pain, unspecified Status: Acute (2) Asbestosis Code(s): J61 - Pneumoconiosis due to asbestos and other mineral fibers Status : Acute (3) History of coronary artery disease Code(s): Z86.79 - Personal history of other diseases of the circulatory system Status: Acute (4) History of heart artery stent Code(s): Z95.5 - Presence of coronary angioplasty implant and graft Status: Acute (5) History of coronary artery bypass graft Code(s): Z95.1 - Presence of aortocoronary bypass graft Status: Acute (6) Hypertension Code(s): I10 - Essential (primary) hypertension Status: Acute (7) Hyperlipidemia Code(s): E78.5 - Hyperlipidemia, unspecified Status: Acute (8) Diabetes Code(s): E11.9 - Type 2 diabetes mellitus without complications Status: Acute - Plan * Chest pain patient has had serial cardiac enzymes and EKGs for ruling out purposes. His symptoms seem atypical. He was seen by Dr. Hughes of cardiology and the chest pain center. I have spoken with his seam sewer Dr. John, he requests Lexiscan. This has been ordered. He will be discharged home if the stress test is nonischemic with instructions to follow-up with his seam sewer and with his staff field engineer. Return to ED for interval issues. * Asbestosis: Patient has been short of breath. He has seen Dr. Godwin, he should discuss his CT findings with Dr. Godwin, he essentially meets criteria for home oxygen and will need to have this arranged with either his staff field engineer or primary care physician. He will need to have the asbestosis followed with his staff field engineer. Patient understands importance of this. * CAD: Symptoms seem atypical. Awaiting Dr. John. He will need to follow-up with his seam sewer within the next week to 2. * Hypertension: Continue medication. * Hyperlipidemia: Continue medication. * Diabetes: Hold metformin for 2 days. Follow diabetic diet. Otherwise resume medications. Patient is stable at this time. He is agreeable to this plan. H&P: Quality - VTE Deep Vein Thrombosis/Pulmonary Embolism Present on Admission: No
--- NOTE | 2018-02-22 09:10 | ECG ---
Date Performed: 02/21/2018 Time Performed: 22:33:05 PTAGE: 72 years EKG: Sinus rhythm MARKED LEFT AXIS DEVIATION RIGHT BUNDLE BRANCH BLOCK ABNORMAL ECG Since PREVIOUS TRACING , no significant change noted PREVIOUS TRACIN02/21/2018 19.46 DOCTOR: Marie Hughes Interpretating Date/Time 02/22/2018 09:09:55
--- NOTE | 2018-02-22 09:10 | ECG ---
Date Performed: 02/21/2018 Time Performed: 19:46:18 PTAGE: 72 years EKG: Sinus rhythm WITH OCCASIONAL SUPRAVENTRICULAR PREMATURE COMPLEXES MARKED LEFT AXIS DEVIATION RIGHT BUNDLE BRANCH BLOCK ABNORMAL ECG Since PREVIOUS TRACING , no significant change noted PREVIOUS TRACIN02/21/2018 15.33 DOCTOR: Marie Hughes Interpretating Date/Time 02/22/2018 09:10:20
--- NOTE | 2018-02-22 09:11 | ECG ---
Date Performed: 02/21/2018 Time Performed: 15:33:19 PTAGE: 72 years EKG: Sinus rhythm WITH OCCASIONAL SUPRAVENTRICULAR PREMATURE COMPLEXES MARKED LEFT AXIS DEVIATION RIGHT BUNDLE BRANCH BLOCK ABNORMAL ECG Since PREVIOUS TRACING , no longer tachycardic PREVIOUS TRACIN03/09/2017 16.14 DOCTOR: Marie Hughes Interpretating Date/Time 02/22/2018 09:10:54
[2018-02-22] MEDS ORDERED: Furosemide 40 MG Tablet PO SCH (10:00)
[2018-02-22] MEDS ORDERED: Folic Acid 1 MG Tablet PO SCH (10:00)
[2018-02-22] MEDS ORDERED: Regadenoson Inj 0.4 MG/5 ML Syringe IV.PUSH ONE (11:47)
[2018-02-22] MEDS ORDERED: Insulin NovoLIN Regular Correctional Sugar Inj SQ SCH (12:00)
[2018-02-22] MEDS ORDERED: CRESTOR 20 MG PO SCH (12:00)
--- NOTE | 2018-02-22 13:20 | NM ---
EXAM DATE: 02/22/2018 12:47 PM EST AGE/SEX: 72 years / Male INDICATIONS:Angina. Myocardial infarction Mid chest pain for one day. CLINICAL DATA: This is the patient's initial encounter. Patient reports that signs and symptoms have been present for 1 day and indicates a pain score of 7/10. MEDICAL/SURGICAL HISTORY: Diabetes mellitus type II. Hypertension. CABG. Coronary artery sten t. COMPARISON: . No external comparison. DOSE: 11 mCi Tc 99m Myoview at rest 35 mCi [id number] at stress 0.4 mg Lexiscan STRESS SYMPTOMS: Short of breath. EJECTION FRACTION: 65 % TECHNIQUE: The patient underwent pharmacologic stress with infusion of prescribed dose. Continuous ECG tracing was monitored during stress. Gated SPECT imaging was performed after stress and conventi onal SPECT imaging was performed at rest. The examination was performed on a SPECT/CT scanner, both attenuation and non-corrected datasets were reviewed. FINDINGS: Distribution: The maximum perfused segment at stress is in the septal wall. Perfusion Study: There is a summed stress score of 14. There is a predominantly fixed moderate-siz ed inferior lateral and inferior wall defect with questionable mild reversibility. Gated Study: There are intact wall motion and wall thickening without hypokinetic or dyskinetic segm ents. The ejection fraction is calculated at 65%. RISK CATEGORY: Low (<1% Annual Motality Rate) CONCLUSION: 1. Normal wall motion and calculated ejection fraction. 2. Predominantly fixed inferior lateral and inferior wall defect with no significant reversibility. This may represent an area of infarction however the wall motion appeared intact. Electronically signed by: Grady Spain MD 02/22/2018 1:19 PM EST
[2018-02-22 15:16] VITALS: BP 136/72; PULSE 95; O2SAT 92
--- NOTE | 2018-02-22 16:06 | TR ---
Date Performed: 02/22/2018 Time Performed: 11:46:56 DOCTOR: Marie Hughes DRUG LIST: CLINICAL HISTORY: REASON FOR TEST: REASON FOR ENDING: OBSERVATION: CONCLUSION: Lexiscan stress test was performed under standard four minute protocol. Radionuclid e was injected one minute prior to ending the test. No electrocardiographic abormalities were present to suggest ischemia. Nuclear imaging and interpretation are pending. COMMENTS: Lexiscan stress test was performed under standard four minute protocol. Radionuclide was injected one minute prior to ending the test. No electrocardiographic abormalities were present t o suggest ischemia. Nuclear imaging and interpretation are pending.
== END 2018-02-22 16:21 | disposition home or self-care (01) ==
LOC: NEDA 15:29 → NEPE 15:29 → NEPHCDU 20:13
PROVIDERS: ADMIT Internal Medicine Cardiovascular Disease; ATTEND Internal Medicine Cardiovascular Disease
DX: I25.2 Old myocardial infarction; I25.10 Atherosclerotic heart disease of native coronary artery without angina pectoris; R07.89 Other chest pain; E78.5 Hyperlipidemia, unspecified; F40.240 Claustrophobia; E11.9 Type 2 diabetes mellitus without complications; Z95.1 Presence of aortocoronary bypass graft; K42.9 Umbilical hernia without obstruction or gangrene; Z87.891 Personal history of nicotine dependence; G47.30 Sleep apnea, unspecified; I10 Essential (primary) hypertension; Z79.899 Other long term (current) drug therapy; J61 Pneumoconiosis due to asbestos and other mineral fibers; Z95.5 Presence of coronary angioplasty implant and graft